=== PATIENT | male | born 1995 | race Caucasian/White ===

== ENCOUNTER 2017-08-29 20:53 | Emergency (ER) | payer BC, OTHER ==
[~2017-08-29] VITALS: Ht 180.3 cm; Wt 70.3 kg
[2017-08-29] MEDS ORDERED: LIDOCAINE 1% VIAL ONE (21:50)
--- NOTE | 2017-08-29 21:51 | DIREP ---
PROCEDURE:XRAY HAND MIN 3 VW-RT COMPARISON:None. INDICATIONS:injury rt hand, laceration,dorsal pain FINDINGS: BONES:Normal. JOINTS:Normal. SOFT TISSUES:Air in the soft tissues along the dorsal aspect of the wrist. No radiopaque foreign body OTHER:No additional findings. CONCLUSION:No fracture, malalignment, or radiopaque foreign body. Soft tissue injury Dictated by: Jere Mendieta MD on 08/29/2017 at 09:50 PM
[2017-08-29] MEDS ORDERED: TRIPLE ANTIBIOTIC OINTMENT TP ONE (22:11)
--- NOTE | 2017-08-29 22:21 | ER.PDOC ---
General Chief Complaint: Extremities Stated Complaint: LAC ON HAND Time seen by MD: 22:16 Source: patient Exam Limitations: no limitations History of Present Illness Initial Comments 22 year old white male with right hand laceration. Punched a mirror in a fit of anger with resultant laceration. Bleeding has stopped on presentation. Tetanus shot is up to date. Occurred: just prior to arrival Where: home Severity: moderate Associated Symptoms: loss power (middle finger) Modifying Factors: pain on movement Allergies: Coded Allergies: No Known Allergies (Unverified , 01/26/14) Past Medical History Medical History: thyroid disease Surgical History: no surgical history Family History Significant Family History: no pertinent family hx Social History Smoking: non-smoker Alcohol Use: occassionally Drug Use: none Review of Systems Constitutional: denies no symptoms reported, denies see HPI, denies chills, denies diaphoresis, denies fever, denies malaise, denies weakness, denies other EENTM: denies no symptoms reported, denies see HPI, denies eye pain, denies blurred vision, denies tearing, denies double vision, denies ear pain, denies ear discharge, denies nose pain, denies nose congestion, denies throat pain, denies throat swelling, denies mouth pain, denies mouth swelling, denies other Respiratory: denies no symptoms reported, denies see HPI, denies cough, denies orthopnea, denies shortness of breath, denies stridor, denies wheezing, denies other Cardiovascular: denies no symptoms reported, denies see HPI, denies chest pain , denies edema, denies palpitations, denies syncope, denies other Musculoskeletal: see HPI Skin: denies no symptoms reported, denies see HPI, denies change in color, denies change in hair/nails, denies dryness, denies lesions, denies lumps, denies rash, denies other Psychiatric/Neurological: emotional problems Physical Exam General Appearance: Alert, No Apparent Distress Wrist: nml inspection, non-tender, nml ROM Forearm/Elbow: nml inspection, non-tender, nml ROM Arm/Shoulder: nml inspection, non-tender, nml ROM 1 - 3 cm gaping laceration with contusion. Loss of extension function, middle finger Neuro/Vasc/Tendon: sensation nml, motor nml, no vascular compromise, tendon function nml Skin: warm/dry Head/ENT: nml inspection, pharynx nml Neck/Back: nml inspection, non-tender Respiratory: chest non-tender, breath sounds nml CVS: heart sounds normal Abdomen: non-tender, no organomegaly Laceration/Wound Repair Laceration/Wound Repair : Wound Location: dorsum right hand Wound Length (cm): 3 Wound cleaned: betadine Distal NVT: neuro intact Anesthesia type: local Anesthesia: 1% Lidocaine Wound's Depth, Shape: linear, into muscle (with possible tendon transection) Wound Explored: no foreign body removed Suture Size/Type: 3:0 Suture Style: interupted Number of Sutures: 5 EKG/XRAY/CT/US XRAY: hand (negative for fracture. no fb) Departure Time of Disposition: 22:20 Disposition: 01 HOME, SELF-CARE Impression: Primary Impression: Hand laceration involving tendon Qualified Codes: S61.411A - Laceration without foreign body of right hand, initial encounter; S66.921A - Laceration of unspecified muscle, fascia and tendon at wrist and hand level, right hand, initial encounter Condition: Stable Referrals: ONEYDA SANTIAGO DO (PCP) PRIMARY CARE PROVIDER Additional Instructions: Follow up Dr. Guerra on Thursday, 1 PM Wound care instruction RTER prn Follow up PCP Watch for signs and symptoms of infection KAROL MINA MD Aug 29, 2017 22:21
[2017-08-29] MEDS ORDERED: TYLENOL #3 PO ONE ×3 (22:30→22:39)
--- NOTE | 2017-08-29 22:30 | NUR ---
UPDATE NEOSPORIN AND BANDAGE APPLIED TO LACERATION. PT TOLERATED PROCEDURE WELL.
[2017-08-29 22:51] VITALS: BP 127/74
[2017-08-31] MEDS ORDERED: LEVO150T6 PO (16:45)
[2017-08-31] MEDS ORDERED: LEVO100T5 PO (16:45)
[2017-09-01] MEDS ORDERED: CEPH-350 PO (09:59)
[2017-09-01] MEDS ORDERED: ACET-687 PO (10:00)
== END 2017-08-29 22:43 | disposition home or self-care (01) ==
LOC: ER 20:53
DX: S61.411A Laceration without foreign body of right hand, initial encounter (principal); E07.9 Disorder of thyroid, unspecified; W22.09XA Striking against other stationary object, initial encounter; Y93.89 Activity, other specified; Y92.098 Other place in other non-institutional residence as the place of occurrence of the external cause; Y99.8 Other external cause status
CPT/HCPCS: 12002; 73130; 99284; J2001; J3490 ×2

== ENCOUNTER → 2017-09-01 | Day surgery (SDC) | payer BC, OTHER ==
[2017-09-01] VITALS (13 sets, daily range): BP systolic 107–155; BP diastolic 55–88
[~2017-09-01] VITALS: Ht 180.3 cm; Wt 70.3 kg
[~2017-09-01] MED LIST: ACET-687 PO; ANCEF ONE; BENADRYL IV PRN; CEPH-350 PO; DECADRON ONE; DILAUDID IV PRN; DILAUDID ONE; DIPRIVAN IV ONE; LACTATED RINGERS 1,000 ML ONE; LACTATED RINGERS IV SCH; LEVO100T5 PO; LEVO150T6 PO; NORCO 5MG PO PRN; NS 100ML 100 ML IV ONE; PHENERGAN IV PRN; SODIUM CHLORIDE IR ONE; SUBLIMAZE ONE; TORADOL ONE; VENTOLIN IH PRN; VERSED ONE; XYLOCAINE ONE; ZOFRAN IV PRN; ZOFRAN ONE
[2017-09-01] MEDS: LACTATED RINGERS 1,000 ML IV SCH ×2 (08:03→09:57)
[2017-09-01 08:32] LABS: CALCIUM 8.8 mg/dL (8.4-10.5); CARBON DIOXIDE 27.8 mmol/L (20.0-32)
--- NOTE | 2017-09-01 11:41 | OPH ---
DATE OF SURGERY: 09/01/2017 PREOPERATIVE DIAGNOSIS: Laceration of right hand with laceration of the extensor tendons to the right long and ring fingers. POSTOPERATIVE DIAGNOSIS: Laceration of the right hand with laceration of the extensor tendons to the right index, long, and ring fingers. OPERATIVE PROCEDURE: Repair of extensor tendons to the right index, long, and ring fingers. SURGEON: Blake Guerra MD ANESTHESIA: General endotracheal TOURNIQUET TIME: 49 minutes at 300 mmHg DRAINS: None BLOOD LOSS: 20 mL DESCRIPTION OF INDICATIONS: The patient is a 22-year-old right hand dominant male who punched a glass window 3 to 4 days ago. He was seen in the Emergency Room and had a dorsal transverse laceration about the dorsal portion of his hand. He was unable to actively extend the long finger and the ring fingers. He was able to extend the little finger index and thumb. He also had good wrist extension. The patient was initially seen in the Emergency Room where his wounds were washed out and closed. He was taken to the operating room today for exploration of the wound and tendon repair. DESCRIPTION OF PROCEDURE: This patient was placed in the operating table in the supine position. General endotracheal anesthesia was induced without difficulty. DESCRIPTION OF PROCEDURE: The patient had a well-padded tourniquet placed around the right upper extremity. The right upper extremity was then sterilely prepped and draped. The arm was exsanguinated and the tourniquet was inflated to 300 mmHg. The patient had his original transverse incision excised in an elliptical manner back to healthy skin and subcutaneous tissues. The wounds were extended proximally and distally with Z type extensions. The wounds were then copiously irrigated with saline. The patient was noted to have a complete laceration of the extensor tendon to the long finger. To the index finger, there was about 70% laceration. The extensor tendon, ring finger, and little finger had about 80% laceration. The wounds were then copiously irrigated. The wounds were debrided. The patient then had the index extensor tendon repaired with some 3-0 Prolene. Likewise, the ring finger tendon laceration was repaired with 3-0 Ethilon. The long finger had the proximal and distal ends of the tendon identified. We used 3-0 Ethilon with a whip stitch in the proximal and distal ends of the tendon. The tendon was then repaired. We reinforced the repair with a running 3-0 Prolene. The patient was able to passively flex the finger down onto the palm of the hand. The wounds were then again irrigated. The skin was closed with interrupted 3-0 Ethilon. A compressive dressing with an extension splint for the fingers was applied. He was extubated in the operating room and the tourniquet was released with good capillary refill. He was sent to recovery in a stable condition. Blake Guerra MD DR: NGOC/walter JOB# [id number]
== END | DRG 566 ==
LOC: SURG 00:21
PROVIDERS: ATTEND Orthopaedic Surgery
DX: S66.322A Laceration of extensor muscle, fascia and tendon of right middle finger at wrist and hand level, initial encounter (principal); S66.320A Laceration of extensor muscle, fascia and tendon of right index finger at wrist and hand level, initial encounter; S66.324A Laceration of extensor muscle, fascia and tendon of right ring finger at wrist and hand level, initial encounter; X58.XXXA Exposure to other specified factors, initial encounter; Y93.89 Activity, other specified; Y92.89 Other specified places as the place of occurrence of the external cause; Y99.8 Other external cause status; E03.9 Hypothyroidism, unspecified; F17.210 Nicotine dependence, cigarettes, uncomplicated; Z72.89 Other problems related to lifestyle; Z82.49 Family history of ischemic heart disease and other diseases of the circulatory system; Z80.42 Family history of malignant neoplasm of prostate; Z80.8 Family history of malignant neoplasm of other organs or systems
CPT/HCPCS: 26418 ×3; 36415; 80048; A4649 ×2; J0690; J1100; J1170; J1885; J2250; J2405; J3010; J3490 ×2; J7030 ×2; J7050; J7120